=== PATIENT | female | born 1935 | race African-American/Black ===

== ENCOUNTER 2018-02-26 20:38 | Emergency (ER) | payer MEDICARE | END 2018-02-26 22:33 | disposition E | LOC: ER 22:33 | DX: I46.9 Cardiac arrest, cause unspecified (principal); E11.9 Type 2 diabetes mellitus without complications; I10 Essential (primary) hypertension; M19.90 Unspecified osteoarthritis, unspecified site | CPT/HCPCS: 99285 ==